=== PATIENT | female | born 1965 | race Caucasian/White ===

== ENCOUNTER 2018-04-23 09:10 | Emergency (ER) | payer OTHER ==
[2018-04-23] MEDS: KETOROLAC 30 MG INJ IM (10:42)
[2018-04-23 11:05] LABS: ADD UMIC YES; UR ASCORBIC ACID NEGATIVE (NEGATIVE); UR BACTERIA FEW /HPF (NONE SEEN); UR BILIRUBIN (Dip) NEGATIVE (NEGATIVE); UR BLOOD (Dip) 1+ mg/dL (NEGATIVE); UR CLARITY CLEAR (CLEAR); UR COLOR YELLOW (YELLOW); UR GLUCOSE (Dip) NEGATIVE (NEGATIVE); UR KETONES (Dip) NEGATIVE (NEGATIVE); UR LEUKOCYTE ESTERASE (Dip) NEGATIVE Leu/ul (NEGATIVE); UR MUCUS FEW /HPF (NONE SEEN); UR NITRITE (Dip) NEGATIVE (NEGATIVE); UR RBC 2 /HPF (0-5); UR TOTAL PROTEIN (Dip) NEGATIVE (NEGATIVE); UR UROBILINOGEN (Dip) NEGATIVE (NEGATIVE); UR WBC 1 /HPF (0-5)
[2018-04-23 11:18] LABS: TROPONIN-I < 0.012 ng/ml (0.000-0.120)
== END 2018-04-23 12:15 | disposition home or self-care (01) ==
LOC: E/R 09:10
DX: R07.9 Chest pain, unspecified (principal); Z87.891 Personal history of nicotine dependence
CPT/HCPCS: 71045; 81001; 84484; 93005; 96372; 99285-25

== ENCOUNTER 2018-04-26 05:28 | Emergency (ER) | payer MEDICAID, OTHER ==
[2018-04-26] MEDS: KETOROLAC 15 MG INJ IM (06:34)
[2018-04-26 06:43] LABS: ADD MAN DIFF? NO
[2018-04-26 06:48] LABS: WHITE BLOOD COUNT 4.5 10^3/ul (4.8-10.8)
[2018-04-26 06:48] LABS: BASOPHILS % 0.4 % (0.0-2.0); EOSINOPHILS # 0.1 10^3/ul (0.0-0.5); EOSINOPHILS % 1.5 % (0.0-7.0); HEMATOCRIT 41.4 % (37.0-47.0); HEMOGLOBIN 13.9 g/dl (12.0-16.0); LYMPHOCYTES # 1.3 10^3/ul (0.8-2.9); LYMPHOCYTES % 28.2 % (15.0-51.0); MEAN CORPUSCULAR HEMOGLOBIN 30.5 pg (29.0-33.0); MEAN CORPUSCULAR HGB CONC 33.6 g/dl (32.0-37.0); MEAN PLATELET VOLUME 9.2 fl (7.4-10.4); MONOCYTE # 0.6 10^3/ul (0.3-0.9); MONOCYTES % 12.1 % (0.0-11.0); NEUTROPHIL # 2.6 10^3/ul (1.6-7.5); NEUTROPHILS % 57.8 % (39.0-77.0); PLATELET COUNT 281 10^3/UL (140-415); RED BLOOD COUNT 4.55 10^6/ul (4.20-5.40); RED CELL DISTRIBUTION WIDTH 12.6 % (11.5-14.5)
[2018-04-26 07:01] LABS: POSITIVE DIFF @See below
[2018-04-26 07:10] LABS: ANION GAP 14 (8-16); BLOOD UREA NITROGEN 8 mg/dl (7-20); CARBON DIOXIDE 30 mmol/L (21-31); CHLORIDE 106 mmol/L (97-110); CREATININE 0.61 mg/dl (0.44-1.00); GLUCOSE 101 mg/dl (70-220); LIPASE 55 U/L (23-300); POTASSIUM 3.8 mmol/L (3.5-5.1); SODIUM 146 mmol/L (135-144)
[2018-04-26 07:21] LABS: TROPONIN-I < 0.012 ng/ml (0.000-0.120)
[2018-04-26 08:34] LABS: INR 0.95; PROTIME 12.8 Sec (11.9-14.9)
[2018-04-26 08:37] LABS: D-DIMER 1442.53 ng/ml (<460)
[2018-04-26] MEDS ORDERED: ALTEPLASE (CATHFLO) 2 MG INJ CATHETER (09:30)
[2018-04-26] MEDS: SOD CHLORIDE 0.9% 100 ML (10:08)
[2018-04-26] MEDS: IOHEXOL 100 ML (10:10)
[2018-04-26 10:32] LABS: BAND NEUTROPHILS % (M) 2 % (0-4); EOSINOPHILS % (M) 1 % (0-7); LYMPHOCYTES #M 1.1 10^3/ul (0.8-2.9); LYMPHOCYTES % (M) 26 % (15-51); MONOCYTE #M 0.5 10^3/ul (0.3-0.9); MONOCYTES % (M) 12 % (0-11); PLATELET ESTIMATE NORMAL; REACTIVE LYMPHOCYTES #M 0.3 10^3/ul (0.0-0.0); REACTIVE LYMPHOCYTES% (M) 7 % (0-0); SEG NEUT #M 2.3 10^3/ul (1.6-7.5); SEGMENTED NEUTROPHILS (M) % 52 % (39-77); SMUDGE%M 4 % (0-0)
== END 2018-04-26 11:09 | disposition home or self-care (01) ==
LOC: E/R 05:28
DX: B02.9 Zoster without complications (principal); F17.210 Nicotine dependence, cigarettes, uncomplicated
CPT/HCPCS: 71275; 80048; 83690; 84484; 85025; 85378; 85610; 93005; 96372; 99285-25